=== PATIENT | male | born 1960 | race Caucasian/White ===

== ENCOUNTER 2016-04-21 18:15 | Emergency (ER) | payer SELFPAY ==
[~2016-04-21] VITALS: Ht 175.3 cm; Wt 80.7 kg
[2016-04-21 18:19] VITALS: BP 107/47
[2016-04-21] MEDS ORDERED: diphenhydrAMINE 50 MG/ML VIAL IM ONE (18:25)
[2016-04-21] MEDS ORDERED: LORazepam 2 MG/ML VIAL IM ONE (18:25)
[2016-04-21] MEDS ORDERED: HALOPERIDOL IM 5 MG/ML VIAL IM ONE (18:25)
[2016-04-21] MEDS ORDERED: NACL 0.9% 1,000 ML IV ONE (18:30)
[2016-04-21] MEDS ORDERED: BACITRACIN OINT 500 UNITS/GM PKT TP ONE (20:07)
--- NOTE | 2016-04-21 20:09 | NUR ---
Note undone in EDM - 04/21/16 at 2041 by ZEV PATIENT BIB [facility] PRESENTS TO ED S/P ETOH . PD STATES PT WAS SIDESIPING CARS HE DROVE . DENIES N/V/D; SKIN IS PINK/WARM/DRY; AAOX4 WITH EVEN AND STEADY GAIT; LUNGS CLEAR BL; HR EVEN AND REGULAR; PT DENIES ANY FEVER, CP, SOB, OR COUGH AT THIS TIME; PATIENT STATES PAIN OF 0/10 AT THIS TIME; VSS; PATIENT POSITIONED FOR COMFORT; HOB ELEVATED; BEDRAILS UP X2; BED DOWN. ER MADE AWARE OF PT STATUS.
--- NOTE | 2016-04-21 20:42 | NUR ---
PATIENT [facility] PRESENTS TO ED S/P ETOH . PD STATES PT WAS SIDESIPING CARS HE DROVE . DENIES N/V/D; SKIN IS PINK/WARM/DRY; AAOX1 WITH EVEN AND STEADY GAIT; LUNGS CLEAR BL; HR EVEN AND REGULAR; PT UNABLE TO COMPREHEND ANY FEVER, CP, SOB, OR COUGH AT THIS TIME; PATIENT STATES PAIN OF 0/10 AT THIS TIME; VSS; PATIENT POSITIONED FOR COMFORT; HOB ELEVATED; BEDRAILS UP X2; BED DOWN. ER MD MADE AWARE OF PT STATUS.
--- NOTE | 2016-04-21 21:05 | NUR ---
PT STATED HE DOES NOT WANT A STRAIGHT CATH PLACED AND THAT HE WANTS TO CONTINUE TO ATTEMPT TO GIVE URINE AT BEDSIDE USING A URINAL
--- NOTE | 2016-04-21 21:10 | NUR ---
PT GAVE URINE VIA VOID AT BEDSIDE
--- NOTE | 2016-04-21 22:43 | NUR ---
Patient appears to be resting comfortably in bed. Vital Signs within normal limits. Respirations even and unlabored. WHEN WOKEN, PATIENT ASKED WHY HE IS HERE. PATIENT IS AWARE OF PERSON AND PLACE AT THIS TIME
--- NOTE | 2016-04-21 23:57 | NUR ---
ATTEMPTING TO CONTACT PATIENTS FRIEND FOR PATIENTS RIDE HOME FROM HOSPITAL
[2016-04-22 00:53] VITALS: BP 106/63
--- NOTE | 2016-04-22 00:54 | NUR ---
IV removed, catheter intact and site benign. Applied folded 4x4 gauze and tape to stop bleeding. Patient discharged with v/s stable. Written and verbal after care instructions given and explained. Patient alert, oriented and verbalized understanding of instructions. Ambulatory with steady gait. All questions addressed prior to discharge. ID band removed. Patient advised to follow up with PMD. Opportunity to ask questions provided and answered. PT PICKED UP BY [facility]
== END 2016-04-22 00:54 | disposition home or self-care (01) ==
LOC: MED 18:15
DX: S00.81XA Abrasion of other part of head, initial encounter (principal); F10.129 Alcohol abuse with intoxication, unspecified; V89.2XXA Person injured in unspecified motor-vehicle accident, traffic, initial encounter; Y93.89 Activity, other specified; Y92.89 Other specified places as the place of occurrence of the external cause; Y99.8 Other external cause status
CPT/HCPCS: 36415; 70450; 71260; 72125; 74177; 80053; 80305; 81001; 85025; 85610; 85730; 96360; 96372; 99285; G0482; J1200; J1630; J2060; J7030